=== PATIENT | male | born 1995 | race American Indian/Alaskan Native ===

== ENCOUNTER 2022-06-06 15:26 | Emergency (ER) | payer SELFPAY ==
[2022-06-06 16:02] VITALS: BP 122/60
[2022-06-06] MEDS ORDERED: LIDOCAINE-MPF (1%) 10 MG/1 ML VIAL 5 ML INFILTRATI ONE (18:14)
[2022-06-06] MEDS ORDERED: AZITHROMYCIN 250 MG TAB PO ONE (18:14)
--- NOTE | 2022-06-06 18:52 | Emergency Department Report ---
ED Male HPI - General Chief complaint: Urogenital-Male Stated complaint: INFECTION/STD Time Seen by Provider: 06/06/22 18:12 Source: patient Mode of arrival: Ambulatory Limitations: No Limitations - History of Present Illness Initial comments: 27-year-old black male with no past medical history presents to the emergency department for exposure to STD. He states that his partner told him that she tested positive for chlamydia and he has also had some penile discharge along with dysuria and abdominal pain. He denies fever. MD Complaint: penile discharge, dysuria -: Gradual, days(s) (2) Location: abdomen Radiation: none Severity: mild Severity scale (0 -10): 2 Quality: aching Consistency: intermittent discharge, dysuria. denies: swelling, mass, rash, urinary retention, blood in urine, fever, nausea/vomiting, incontinence - Related Data Sexually active: Yes Allergies Allergy/AdvReac Type Severity Reaction Status Date / Time No Known Allergies Allergy Verified 06/06/22 16:03 ED Review of Systems ROS: Stated complaint: INFECTION/STD Other details as noted in HPI Comment: All other systems reviewed and negative Constitutional: denies: chills, fever Respiratory: denies: shortness of breath Cardiovascular: denies: chest pain, palpitations Gastrointestinal: abdominal pain. denies: nausea, vomiting Genitourinary: dysuria, discharge. denies: urgency, frequency, hematuria, testicular pain, testicular mass Skin: denies: rash, lesions Neurological: denies: headache, weakness ED Past Medical Hx - Social History Smoking Status: Current Every Day Smoker Substance Use Type: Alcohol, Marijuana ED Physical Exam - General Limitations: No Limitations General appearance: alert - Head Head exam: Present: atraumatic, normocephalic, normal inspection - Eye Eye exam: Present: normal appearance. Absent: conjunctival injection - Neck Neck exam: Present: normal inspection - Respiratory Respiratory exam: Present: normal lung sounds bilaterally. Absent: respiratory distress - Cardiovascular Cardiovascular Exam: Present: regular rate, normal heart sounds - GI/Abdominal GI/Abdominal exam: Present: soft, normal bowel sounds. Absent: distended, tenderness - exam: Present: normal inspection - Extremities Exam Extremities exam: Present: normal inspection, normal capillary refill - Back Exam Back exam: Present: normal inspection. Absent: CVA tenderness (R), CVA tenderness (L) - Neurological Exam Neurological exam: Present: alert, oriented X3 - Psychiatric Psychiatric exam: Present: normal affect, normal mood - Skin Skin exam: Present: warm, dry, intact, normal color ED Course Vital Signs 06/06/22 15:59 Temperature 98.7 F Pulse Rate 62 Respiratory 14 Rate Blood Pressure 122/60 [Right] O2 Sat by Pulse 100 Oximetry ED Medical Decision Making - Medical Decision Making 27-year-old black male with no past medical history presents to the emergency department for exposure to STD. He states that his partner told him that she tested positive for chlamydia and he has also had some penile discharge along with dysuria and abdominal pain. He denies fever. Patient treated with Rocephin 500 mg IM and a Zithromax 1 g p.o. per his request stating that he cannot follow 7-day regiment for doxycycline. He is advised to practice safe sex and follow-up with his primary care provider if no improvement or worsening symptoms. He is advised to return to the emergency department as needed. He verbalizes understanding of and agreement with plan of care. Critical care attestation.: If time is entered above; I have spent that time in minutes in the direct care of this critically ill patient, excluding procedure time. ED Disposition Clinical Impression: Urethritis, Exposure to STD Disposition: 01 HOME / SELF CARE / HOMELESS Is pt being admited?: No Does the pt Need Aspirin: No Condition: Stable Instructions: Urethritis, Adult, Safe Sex Additional Instructions: Practice safe sex. Follow-up with your primary care provider if no improvement or worsening symptoms. Return to the emergency department as needed. Referrals: CORBIN RUFF MD [Staff Physician] - 3-5 Days Forms: STI Treatment and Prevention Time of Disposition: 18:54
[2022-06-06 19:27] LABS: Mucus,Urine 3+ /HPF; WBC,Urine < 1.0 /HPF (0.0-6.0)
[2022-06-06 19:34] LABS: Color,Urine Yellow (Yellow)
== END 2022-06-06 19:02 | disposition home or self-care (01) ==
LOC: ED 15:26
DX: N34.2 Other urethritis (principal); Z20.2 Contact with and (suspected) exposure to infections with a predominantly sexual mode of transmission
CPT/HCPCS: 81001; 87591; 96372; 99283; J0696; J3490